=== PATIENT | male | born 1935 | race Caucasian/White ===

== ENCOUNTER 2023-07-25 19:33 | Emergency (ER) | payer BC ==
[~2023-07-25] VITALS: Ht 175.3 cm; Wt 72.6 kg
[2023-07-25 19:45] VITALS: BP_SYST 125; PULSE 87; RESP 18; TEMP 97.7; O2SAT 98
[2023-07-25 20:27] LABS: ABG O2 SAT% ESTIMATE 99.1 % (94.0-100.0); BLOOD GAS BASE EXCESS 4.5 mmol/L (-3.0-3.0); BLOOD GAS HCO3 19.2 mmol/L (21.0-27.0); BLOOD GAS PCO2 13.1 mmHg (32.0-45.0); BLOOD GAS PH 7.785 (7.350-7.450); BLOOD GAS PO2 110.5 mmHg (75.0-100.0)
[2023-07-25 20:29] LABS: BASOPHILS # (AUTO) 0.1 K/uL (0.0-0.2); BASOPHILS % (AUTO) 0.6 % (0.0-2.0); EOSINOPHILS % (AUTO) 0.2 % (0.0-4.0); HEMOGLOBIN 15.7 g/dL (14.0-18.0); LYMPHOCYTES # (AUTO) 1.9 K/uL (1.0-5.5); LYMPHOCYTES % (AUTO) 17.7 % (20.5-51.5); MEAN CORPUSCULAR HEMOGLOBIN 29 pg (27-31); MEAN CORPUSCULAR HGB CONC 34 % (32-36); MEAN CORPUSCULAR VOLUME 88 fL (79.0-98.0); MONOCYTES # (AUTO) 1.1 K/uL (0.0-1.0); MONOCYTES % (AUTO) 10.4 % (1.7-9.3); NEUTROPHILS # (AUTO) 7.5 K/uL (1.8-7.7); NEUTROPHILS % (AUTO) 71.1 % (40.0-70.0); PLATELET COUNT (AUTO) 309 K/uL (130-430); RED BLOOD CELL COUNT(AUTO) 5.36 MIL/uL (4.2-6.2); RED CELL DISTRIBUTION WIDTH 14.1 % (9.0-15.0); WHITE BLOOD COUNT (AUTO) 10.5 K/uL (4.8-10.8)
[2023-07-25 20:40] LABS: ANION GAP 12 (5-15); CALCIUM 9.5 mg/dL (8.4-11.0); CARBON DIOXIDE 28 mmol/L (23-29); CHLORIDE 100 mmol/L (98-107); GLUCOSE 165 mg/dL (74-106); POTASSIUM 3.6 mmol/L (3.5-5.1); SODIUM SERUM 140 mmol/L (136-145); UREA NITROGEN, BLOOD 24 mg/dL (8-21)
[2023-07-25 20:46] LABS: ALANINE AMINOTRANSFERASE 28 U/L (12-78); ALBUMIN 3.9 g/dL (3.4-4.8); ASPARTATE AMINOTRANSFERASE 17 U/L (10-37); TOTAL BILIRUBIN 1.2 mg/dL (0.0-1.0); TOTAL PROTEIN, SERUM 7.7 g/dL (6.4-8.3)
[2023-07-25 21:00] LABS: BILIRUBIN,URINE 1+ (NEGATIVE); BLOOD, URINE NEGATIVE (NEGATIVE); CLARITY/URINE SL CLOUDY (CLEAR); COLOR,URINE YELLOW (YELLOW); GLUCOSE,URINE NEGATIVE (NEGATIVE); KETONES,URINE 1+ (NEGATIVE); LEUKOCYTE ESTERASE ,URINE TRACE (NEGATIVE); NITRITE, URINE NEGATIVE (NEGATIVE); PROTEIN URINE TRACE (NEGATIVE); UROBILINOGEN,URINE 0.2 (0.2-1.0)
[2023-07-25 21:08] LABS: COVID19 ANTIGEN SOFIA FIA NEGATIVE (NEGATIVE)
[2023-07-25 21:09] LABS: INFLUENZA TYPE A Negative (NEGATIVE); INFLUENZA TYPE B NEGATIVE (NEGATIVE)
[2023-07-25 21:18] LABS: BACTERIA,URINE MANY /HPF (None Seen); MUCUS,URINE 3+ /LPF (None Seen)
[2023-07-25] MEDS ORDERED: cefTRIAXone 1 GM IVPB PREMIX 50 ML IV ONE (21:30)
[2023-07-25] MEDS ORDERED: iohexoL 350 mgI/mL, 100 ML INFUS..BTL IV ONE (22:15)
[2023-07-25] MEDS ORDERED: MAG-AL HYDROX/SIMETH 30 ML UDC PO ONE (23:45)
[2023-07-26] MEDS ORDERED: CEPH250C PO (00:56)
[2023-07-26 01:25] VITALS: BP_SYST 111; PULSE 70; RESP 16; TEMP 98; O2SAT 98
== END 2023-07-26 01:31 | disposition home or self-care (01) ==
LOC: SED 19:33
DX: R06.02 Shortness of breath (principal); R05.9 Cough, unspecified; I10 Essential (primary) hypertension; Z79.899 Other long term (current) drug therapy; Z20.822 Contact with and (suspected) exposure to COVID-19
CPT/HCPCS: 99285; 96365; 71275; 71045; 87426; 80053; 81001; 83880; 85025; 85379; 87040; 87086; 84484; 36415; 93005; 36600; 82803; 87804 ×2; 81000; 81015; 76376; Q9967; J0696